=== PATIENT | male | born 1955 | race Caucasian/White ===

== ENCOUNTER → 2024-08-20 07:01 | Outpatient (REF) | payer OTHER, SELFPAY | LOC: HWRCS 07:01 | PROVIDERS: ATTENDING PHYSICIAN Physician Assistant | DX: R07.9 Chest pain, unspecified (principal); I45.10 Unspecified right bundle-branch block | CPT/HCPCS: 93306 ==

== ENCOUNTER → 2024-10-25 14:15 | Outpatient (REF) | payer OTHER, SELFPAY | LOC: RAD 14:15 | PROVIDERS: ATTENDING PHYSICIAN Physician Assistant | DX: K42.9 Umbilical hernia without obstruction or gangrene (principal); R10.33 Periumbilical pain | CPT/HCPCS: 74177; Q9967 ==

== ENCOUNTER → 2025-01-10 11:14 | Outpatient (REF) | payer OTHER, SELFPAY | LOC: RAD 11:14 | PROVIDERS: ATTENDING PHYSICIAN Student in an Organized Health Care Education/Training Program; FAMILY PHYSICIAN Physician Assistant | DX: S05.50XA Penetrating wound with foreign body of unspecified eyeball, initial encounter (principal) | CPT/HCPCS: 70030 ==